=== PATIENT | female | born 1980 | race Hispanic/Latino ===

== ENCOUNTER 2024-03-16 08:18 | Outpatient (CLI) | payer OTHER, MEDICAID | END 2024-03-16 08:19 | disposition home or self-care (01) | LOC: CSHLAB 08:18 | PROVIDERS: ATTEND Obstetrics & Gynecology | DX: Z01.818 Encounter for other preprocedural examination (principal) | CPT/HCPCS: 84703; 85027; 86850; 86900; 86901; 93005; 93010 ==

== ENCOUNTER 2025-03-23 08:17 | Outpatient (CLI) | payer BC | END 2025-03-23 08:18 | disposition home or self-care (01) | LOC: CSHSLEEP 08:17 | PROVIDERS: ATTEND Family Medicine | DX: G47.33 Obstructive sleep apnea (adult) (pediatric) (principal); R53.83 Other fatigue; R51.9 Headache, unspecified; E66.9 Obesity, unspecified; Z68.43 Body mass index [BMI] 50.0-59.9, adult; R06.83 Snoring | CPT/HCPCS: 95800 ==